=== PATIENT | female | born 1985 | race Hispanic/Latino ===

== ENCOUNTER 2020-08-25 01:30 | Emergency (ER) | payer OTHER ==
[~2020-08-25] VITALS: Ht 165.1 cm; Wt 111.1 kg
[2020-08-25] MEDS ORDERED: KETOROLAC TROMETHAMINE 60 MG/2 ML VIAL ONE (02:29)
[2020-08-25] MEDS ORDERED: KETOROLAC TROMETHAMINE 60 MG/2 ML VIAL IM ONE (02:30)
[2020-08-25 02:33] VITALS: BP 116/76
== END 2020-08-25 02:33 | disposition home or self-care (01) ==
LOC: FSED 02:20
DX: M79.671 Pain in right foot (principal)
CPT/HCPCS: 99282; J1885